=== PATIENT | male | born 1940 | race Caucasian/White ===

== ENCOUNTER 2017-05-13 18:15 | Emergency (ER) | payer OTHER ==
[~2017-05-13] VITALS: Wt 86.2 kg
[2017-05-13] MEDS ORDERED: THORAZINE25 MG PO (18:35)
== END 2017-05-13 19:39 | disposition home or self-care (01) ==
LOC: ED 18:15
DX: R06.6 Hiccough (principal); R10.9 Unspecified abdominal pain; M54.5 Low back pain

== ENCOUNTER 2017-07-16 11:16 | Inpatient (IN) | payer OTHER ==
[~2017-07-16] VITALS: Ht 179 cm; Wt 84.0 kg
[2017-07-16] VITALS (8 sets, daily range): BP systolic 112–138; BP diastolic 48–87
--- NOTE | ~2017-07-16 | CON ---
[place], [place] REPORT OF CONSULTATION NAME: HENRIQUE MARINO UNIT #: [id number] ROOM: 520 DOCTOR: SHAHRIAR JAVIER MD BIRTHDATE: [birth year] DOS: 07/16/2017 HISTORY OF PRESENT ILLNESS: A 76-year-old patient who presented with chief complaint of difficulty swallowing, nausea, vomiting to the Emergency Room. I was called by Dr. Joey Patel couple hours ago. The patient has presumptive diagnosis of a foreign body esophagus to be food that he has ingested yesterday and has not been since able to take his medication and any further drinking or eating. His labs and records reviewed. White blood cell 10, H and H 15 and 45, INR 1.1. Comprehensive metabolic panel, BUN and creatinine 38 and 1.8, glucose 113. Chemistry normal. Chest x-ray, no acute pathology. PAST MEDICAL HISTORY: Hypertension, hyperlipidemia, chronic back pain. PAST SURGICAL HISTORY: Right hip, appendectomy, hernia repair, tonsillectomy. SOCIAL HISTORY: One to two glasses of wine per week. Non-nicotine consumer. FAMILY HISTORY: Noncontributory. ALLERGIES: No known to medication. MEDICATIONS: List reviewed. REVIEW OF SYSTEMS: HEENT: Denies double vision, blurred vision. RESPIRATORY: Denies shortness of breath. CARDIOVASCULAR: Denies chest pain. DIGESTIVE SYSTEM: Dysphagia. PHYSICAL EXAMINATION: VITAL SIGNS: Stable. HEENT: Head normocephalic, nontraumatic. Mouth and buccal mucosa benign. NECK: Supple, no thyromegaly. CHEST: Symmetric anatomy, equal expansion. No wheeze, no rhonchi. HEART: Normal sinus rhythm, no gallop, no murmur. ABDOMEN: Obese, soft. No hepato-organomegaly. Bowel sounds present. EXTREMITIES: No cyanosis, no pedal edema. NEUROLOGIC: Alert, oriented to time, place, person. IMPRESSION: Dysphagia, esophageal foreign body, hypertension, hyperlipidemia, chronic back pain, pain medications. PLAN AND DISCUSSION: EGD, foreign body removal. [place], [place] REPORT OF CONSULTATION NAME: HENRIQUE MARINO UNIT #: [id number] ROOM: 520 DOCTOR: SHAHRIAR JAVIER MD BIRTHDATE: [birth year] SHAHRIAR JAVIER MD CM:CONSTR:REPORT OF CONSULTATION 1710 07/17/17 0213 interface
--- NOTE | ~2017-07-16 | O ---
[place], [place] OPERATIVE NOTE NAME: HENRIQUE MARINO UNIT #: [id number] ROOM: 520 [facility] BIRTHDATE: [birth year] DOS: 07/16/2017 INDICATIONS: The patient has presented with dysphagia. Consultation has been dictated. PROCEDURE: Today's procedure part of investigation is EGD plus biopsy plus esophageal foreign body food impacted, beef meat. PREMEDICATION: Versed and Diprivan. SCOPE: Olympus forward-viewing gastroscope Q10 video. REPORT: After putting the patient in left lateral position and application of lubricant to rectal pouch and digital examination, scope was introduced. Thereafter, under direct visualization, advanced through the length of esophagus, cervical esophagus and thoracic esophagus normal. Distal esophagus was impacted with foreign body food, beef meat. Initially, basket was introduced and attempt was made to remove the foreign body meat with basket. However, this was impractical due to the impaction, then snare was used and eventually multiple pieces orally extracted and eventually debulking the foreign body was removed. Site of the foreign body appears to be injured with pressure necrosis ulcer because he had been sitting on this symptoms for a day, at least day plus. He has pressure necrosis ulcer at distal esophagus, hiatal hernia, moderate size and benign distal esophageal stricture, which is ulcerated. Gastric pouch is benign, duodenal benign. IMPRESSION: 1. Distal esophageal foreign body impaction, beef meat. 2. Pressure necrosis ulcer, distal esophagus. 3. Distal esophageal benign stricture. 4. Moderate size hiatal hernia. PLAN AND DISCUSSION: The ulcer at the distal esophagus appears to be rather deep and I am concerned about the corner of the ulcer. Therefore, I am going to keep this patient on Protonix 40 mg IV b.i.d., sucralfate 2 grams to be sipped by the patient q. 6 hours and 2 hours a.c. meals. Clear liquids from tomorrow morning and clinical reassessment. I would rather this patient not to be on any solid food for the next 3 days, rather on intense medication due to the pressure necrotic ulcer that I see at the end of the esophagus and I am concerned that it may penetrate deeper layers. Therefore, resting the esophagus from receiving solid food with at least organized healing. [place], [place] OPERATIVE NOTE NAME: HENRIQUE MARINO UNIT #: [id number] ROOM: [facility] DOCTOR: YAYA CANELA,SHAHRIAR BIRTHDATE: [birth year] SHAHRIAR JAVIER MD CM:OPRECORD:OPERATIVE NOTE 1714 22 SHAHRIAR JAVIER MD 07/16/172222 interface
--- NOTE | ~2017-07-16 | PROC NOTE ---
[place], [place] PROCEDURE NOTE [id number] UNIT #: [id number] ROOM: 520 DOCTOR: CARL SILVESTRE BIRTHDATE: [birth year] DOS: 07/18/2017 MODIFIED BARIUM SWALLOW. LOCATION: [facility], room 520, bed 1. ORDERING PHYSICIAN: Dr. Henry RADIOLOGIST: Dr. Post. BACKGROUND INFORMATION: The patient, a 76-year-old male was seen for modified barium swallow. This test was ordered to determine most appropriate diet consistency and view the anatomy and physiology of the swallowing mechanism. The patient presented to the Emergency Department 07/16/2017 due to difficulty swallowing which began the prior day while eating pork and sauerkraut. The patient reported feeling that something was stuck in his throat and since that time, he was unable to even swallow liquids. He was seen by Dr. Duffy who performed EGD and removed meat from the distal esophagus, which caused a pressure necrosis ulcer. The patient is currently receiving a full liquid diet. Further medical history includes hypertension and epigastric abdominal pain. For today's assessment, the patient was alert, cooperative and able to follow all commands. Oral peripheral examination revealed natural teeth with many missing. Lingual, labial, and buccal skills were within normal limits in terms of strength, range of motion, and coordination. The patient was able to volitionally cough and swallow. METHODS AND MATERIALS USED FOR THE EXAM: The patient was positioned in the lateral plane and the exam was viewed under fluoroscopy. The patient was presented with a variety of consistencies to assess swallowing skills including applesauce mixed with barium presented in 1/4 and 1/2 teaspoon amounts, barium-coated peaches presented in bite size pieces and thin liquid barium taken by cup, patient swallowed the thin liquid independently. ORAL PHASE: Unremarkable. PHARYNGEAL PHASE: Unremarkable. ESOPHAGEAL PHASE: This phase of the swallow was not formally assessed during this exam. IMPRESSIONS AND RECOMMENDATIONS: Based upon assessment results, this patient displayed oral and pharyngeal swallowing skills that are within normal limits. When medically appropriate for diet upgrade, recommend a regular diet and thin liquid, recommend use of safe swallow strategies such as small bites and sips, chewing thoroughly and eating slowly. No followup dysphagia treatment is warranted at this time. The patient was educated on results and recommendations and verbalized understanding. Thank you very much for this referral. Should you have any questions regarding this patient, please contact the speech pathologist at [phone]. [place], [place] PROCEDURE NOTE NAME: HENRIQUE MARINO Reji UNIT #: [id number] ROOM: [facility] DOCTOR: CARL SILVESTRE BIRTHDATE: [birth year] CARL SILVESTRE WESTLEY REID MD CM:PROCNOTE:PROCEDURE NOTE [id number] CARL SILVESTRE
--- NOTE | ~2017-07-16 | PR ---
[place], [place] PROGRESS NOTE NAME: HENRIQUE MARINO UNIT #: [id number] ROOM: 520 DOCTOR: YAYA CANELASHAHRIAR BIRTHDATE: [birth year] DOS: 07/18/2017 GASTROENDOSCOPIC PROGRESS NOTE REPORT HISTORY OF PRESENT ILLNESS: The patient has presented with esophageal foreign body, which was found to have an impacted foreign body meat at the distal esophagus with complete obstruction and large pressure necrosis ulcer and distal esophageal benign stricture, moderate hiatal hernia. The ulcer at distal esophagus was rather deep and I was concerned that it may penetrate at the lumen and therefore, the patient was kept on aggressive ulcer management with sucralfate and Protonix, was kept first day n.p.o. after that on clear liquid and after that increased to full liquid and he has been tolerating without pain, without shortness of breath. We are going to increase his diet to soft diet tonight and if he tolerates, then he will be a candidate for discharge with continuation of Protonix once a day and to come back and follow as outpatient with us. LABORATORY DATA: His labs and records has been reviewed. PAST MEDICAL HISTORY: Chronic back pain, hypertension, hyperlipidemia. PAST SURGICAL HISTORY: Has been reviewed today. REVIEW OF SYSTEMS: HEENT: Denies double vision, blurred vision. RESPIRATORY: Denies shortness of breath. CARDIOVASCULAR: Denies chest pain. DIGESTIVE SYSTEM: No hematemesis, no dysphagia, history of esophageal stricture and ulceration, pressure necrosis of ulcer in distal esophagus. PHYSICAL EXAMINATION: VITAL SIGNS: Stable. HEENT: Benign. NECK: Supple. LUNGS: Vesicular. No wheeze, no rhonchi. HEART: Normal sinus rhythm, no gallop, no murmur. ABDOMEN: Soft. No hepato-organomegaly. Bowel sounds present. EXTREMITIES: No cyanosis, no pedal edema. NEUROLOGIC: Alert, oriented to time, place, person. IMPRESSION: Distal esophageal pressure necrosis ulcer secondary to esophageal foreign body, status post removal, distal esophageal stricture. PLAN AND DISCUSSION: We are going to increase his diet to soft. If he tolerates, he can be discharged on Protonix tomorrow and follow as outpatient for future dilations. [place], [place] PROGRESS NOTE NAME: HENRIQUE MARINO UNIT #: [id number] ROOM: 520 DOCTOR: YAYA CANELA,SHAHRIAR BIRTHDATE: [birth year] SHAHRIAR JAVIER MD CM:ALEX [id number] SHAHRIAR JAVIER MD 07/19/17 0042 interface
[~2017-07-16 11:16] MED LIST: THORAZINE25 MG PO
[2017-07-16 12:04] LABS: BASO % 0.3 % (0.0-1.0); EOS # 0.1 10*3/uL (0.0-0.4); EOS % 0.9 % (1.0-4.0); HEMATOCRIT 45.1 % (42.0-52.0); HEMOGLOBIN 15.6 g/dl (14.0-18.0); LYMPH # 1.1 10*3/uL (1.3-4.4); LYMPH % 10.1 % (27.0-41.0); MEAN CELL VOLUME 94.4 fl (80.0-94.0); MEAN CORPUSCULAR HGB 32.6 pg (27.0-31.0); MEAN CORPUSCULAR HGB CONC 34.6 g/dl (33.0-37.0); MEAN PLATELET VOLUME 12.1 fl (9.6-12.3); MONO # 0.7 10*3/uL (0.1-1.0); MONO % 6.4 % (3.0-9.0); NEUT # 8.6 10*3/uL (2.3-7.9); NEUT % 81.8 % (47.0-73.0); PLATELET COUNT AUTOMATED 252 10*3/uL (130-400); RED BLOOD COUNT 4.78 10*6/uL (4.50-5.90); RED CELL DISTRI WIDTH 14.6 % (0-14.5); WHITE BLOOD COUNT 10.6 10*3/uL (4.8-10.8)
--- NOTE | 2017-07-16 12:20 | NUR ---
Time: 1220 A 76 year old MALE admitted to 5E under services of GAYLE WELSH DO. Pt. arrived via stretcher from ER. Chief complaint: ABD PAIN, NAUSEA.. NICOLE KAMINSKI
[2017-07-16 12:41] LABS: ACT PARTIAL THROMBO TIME 25.9 SECONDS (20.8-31.5); INTERNATIONAL NORM RATIO 1.1 (2.0-3.5)
[2017-07-16 12:47] LABS: ALBUMIN 4.2 gm/dl (3.1-4.5); CREATININE 1.83 mg/dL (0.70-1.30); TOTAL PROTEIN 7.5 gm/dL (6.4-8.2)
--- NOTE | 2017-07-16 12:48 | NUR ---
DR JAVIER NOTIFIED OF CONSULT
[2017-07-16] MEDS ORDERED: MORPHINE SULFAT20 M2 PO (15:12)
[2017-07-16] MEDS ORDERED: NORCO 7.5-3251 EACH PO (15:13)
[2017-07-16] MEDS ORDERED: ALLOPURINOL100 MG PO (15:13)
[2017-07-16] MEDS ORDERED: ZESTORETIC 20-1 EACH PO (15:14)
[2017-07-16] MEDS ORDERED: LIPITOR20 MG PO (15:15)
[2017-07-16] MEDS ORDERED: FLOMAX0.4 MG PO (15:16)
--- NOTE | 2017-07-16 15:31 | NUR ---
HOME MEDICATIONS VERIFIED WITH AMTT CAMERON
--- NOTE | 2017-07-16 20:31 | NUR ---
PATIENT LAYING IN BED CALL LIGHT IN REACH NO CO AT THIS TIME
--- NOTE | 2017-07-16 22:44 | NUR ---
PATIENT RESTING IN BED EYES CLOSED RESP ERNL SEE SHIFT ASSESSMENT
[2017-07-17] VITALS: BP 135/86
--- NOTE | 2017-07-17 01:28 | NUR ---
PATIENT SLEEPING CALL LIGHT IN REACH RESP ERNL SEE SHIFT ASSESSMENT
[2017-07-17 04:00] VITALS: BP 107/63
--- NOTE | 2017-07-17 05:14 | NUR ---
PATIENT RESTING IN BED CALL LIGHT IN REACH RESP ERNL SEE ASSESSMENT
[2017-07-17 06:36] LABS: BASO % 0.3 % (0.0-1.0); EOS # 0.3 10*3/uL (0.0-0.4); EOS % 4.7 % (1.0-4.0); HEMOGLOBIN 14.6 g/dl (14.0-18.0); LYMPH # 1.1 10*3/uL (1.3-4.4); LYMPH % 16.1 % (27.0-41.0); MEAN CELL VOLUME 95.6 fl (80.0-94.0); MEAN CORPUSCULAR HGB 32.4 pg (27.0-31.0); MEAN PLATELET VOLUME 11.5 fl (9.6-12.3); MONO # 0.6 10*3/uL (0.1-1.0); NEUT # 4.6 10*3/uL (2.3-7.9); NEUT % 69.4 % (47.0-73.0); RED CELL DISTRI WIDTH 14.3 % (0-14.5); WHITE BLOOD COUNT 6.6 10*3/uL (4.8-10.8)
[2017-07-17 06:48] LABS: ALBUMIN 3.5 gm/dl (3.1-4.5); BUN 29 mg/dl (7-24); CHLORIDE 112 mmol/L (98-107); POTASSIUM 3.8 mmol/L (3.5-5.1); SODIUM 145 mmol/L (136-145)
[2017-07-17 06:53] LABS: PLATELET COUNT AUTOMATED 158 10*3/uL (130-400)
[2017-07-17 06:55] LABS: ALKALINE PHOSPHATASE 70 U/L (45-117); CHOLESTEROL 96 mg/dL (<200); CREATININE 1.39 mg/dL (0.70-1.30); HDL CHOLESTEROL 57 mg/dl (40-60); LDL CHOLESTEROL 22 mg/dL (9-159); PHOSPHOROUS 2.1 mg/dL (2.5-4.9); SGOT/AST 18 IU/L (3-35); SGPT/ALT 21 U/L (12-78); THYROID STIM HORMONE (HS) 0.301 uIU/ml (0.358-4.75); TOTAL PROTEIN 6.8 gm/dL (6.4-8.2); TRIGLYCERIDES 86 mg/dl (<150); VLDL CHOLESTEROL 17 mg/dL (6-40)
--- NOTE | 2017-07-17 07:58 | NUR ---
PT RESTING IN BED, EYES CLOSED. NO DISTRESS NOTED. WILL MONITOR
[2017-07-17 08:00] VITALS: BP 124/62
--- NOTE | 2017-07-17 08:00 | NUR ---
VS STABLE, SPO2 94% ON ROOM AIR, PULSE 60 REGULAR ALERT ORENTATIEDX3 LUNGS CLEAR THROUGHOUT, HEART SOUNDS NORMAL, SKIN TURGOR GOOD, SKIN PINK WARM & DRY, ABDOMEN SOFT NON-DISTENED, PULSES GOOD THROUGHOUT, BOWEL SOUNDSX4, ANATOLY, EQUAL HULL INSPECTOR, NO COMPLAINTS AT THIS TIME WILL CONTINUE TO MONITOR. [facility]ALL [facility]
--- NOTE | 2017-07-17 08:30 | NUR ---
Equipment Manager in to talk to patient. Patient states lives at home alone. There are no steps in the home. Physician: Dr. Fer Daniels Pharmacy: [facility] services: none Patient's level of ADLs: INDEPENDENT Patient has working utilities: yes DME: none Follow-up physician's appointment after d/c: will be made by hospitalist nurse director upon discharge Does patient want to access PORTAL?: no Discharge plan discussed with patient. He is independent in his ADLs and ambulation. Denies any home needs. When medically stable he will be discharged to home. FRANK FARRAR
[2017-07-17 08:44] LABS: VITAMIN D, 25-HYDROXY 15.9 ng/mL (30-100)
--- NOTE | 2017-07-17 11:30 | NUR ---
DIET UP GRADED TO CLEAR LIQUID DIET. [facility]MI [facility]ALL [facility]
[2017-07-17 12:00] VITALS: BP 126/76
--- NOTE | 2017-07-17 12:49 | NUR ---
PT TOLORATED CLEAR LIQUID DIET ATE 100% OF MEAL. [facility]
[2017-07-17 16:00] VITALS: BP 137/86
--- NOTE | 2017-07-17 16:00 | NUR ---
IV started LEFT ARM with # 24 angiocath after 2 attempts. The IV site was prepped with Chloraprep. Heparin lock attached. Sterile dressing applied. Patient tolerated precedure well. Procedure performed according to [facility] policy & procedure. NICOLE KAMINSKI
[2017-07-17 20:00] VITALS: BP 147/71
--- NOTE | 2017-07-17 20:20 | NUR ---
PT RESTING IN BED WATCHING TV. NO S AND S OF DISTRESS NOTED AT THIS TIME. RESPS EASY AND REGULAR. CALL LIGHT IN REACH. LAB RESULTS AND ORDERS REVIEWED.
--- NOTE | 2017-07-17 23:00 | NUR ---
ASSUMED CARE FOR THIS PT AT THIS TIME. RESTING QUIETLY IN BED AT THIS TIME. NO C/O VOICED. DENIES DYSPHAGIA. PT TEACHING GIVEN RE SWALLOWING TO PREVENT CHOKING. PT RECEPTIVE TO LEARNING. CALL LIGHT IN REACH.
[2017-07-18] VITALS: BP 145/77
[2017-07-18 07:03] LABS: BASO % 0.5 % (0.0-1.0); EOS # 0.4 10*3/uL (0.0-0.4); EOS % 6.8 % (1.0-4.0); HEMATOCRIT 41.2 % (42.0-52.0); HEMOGLOBIN 14.1 g/dl (14.0-18.0); LYMPH # 1.5 10*3/uL (1.3-4.4); LYMPH % 25.2 % (27.0-41.0); MEAN CELL VOLUME 94.9 fl (80.0-94.0); MEAN CORPUSCULAR HGB 32.5 pg (27.0-31.0); MEAN CORPUSCULAR HGB CONC 34.2 g/dl (33.0-37.0); MEAN PLATELET VOLUME 11.2 fl (9.6-12.3); MONO # 0.6 10*3/uL (0.1-1.0); NEUT # 3.4 10*3/uL (2.3-7.9); NEUT % 57.2 % (47.0-73.0); PLATELET COUNT AUTOMATED 152 10*3/uL (130-400); RED BLOOD COUNT 4.34 10*6/uL (4.50-5.90); RED CELL DISTRI WIDTH 13.9 % (0-14.5)
[2017-07-18 07:33] LABS: CHLORIDE 108 mmol/L (98-107); POTASSIUM 3.5 mmol/L (3.5-5.1); SODIUM 140 mmol/L (136-145)
[2017-07-18 07:36] LABS: BUN 22 mg/dl (7-24); FREE T4 1.24 ng/dl (0.76-1.46)
[2017-07-18 08:00] VITALS: BP 134/72
--- NOTE | 2017-07-18 08:00 | NUR ---
VS STABLE, ALERT ORENTATIEDX3, SPO 95% ON ROOM AIR, PULSE 60 REGULAR, LUNGS CLEAR THROUGHOUT, HEART SOUNDS NORMAL, BOWEL SOUNDSX4 ABDOMEN SOFT NON-DISTENDED, ANATOLY, SKIN TURGOR GOOD, SKIN PINK WARM &DRY, PULSES GOOD THROUGHOUT NO COMPLAINTS OF PAIN AT THIS TIME WILL CONTINUE TO MONITOR. [facility]
--- NOTE | 2017-07-18 08:22 | NUR ---
SPOKE TO DR JAVIER REGARDING DIET CHANGE , ORDER RECIEVED TO ADVANCE TO FULL LIQUID DIET TODAY.
--- NOTE | 2017-07-18 08:30 | NUR ---
PATIENT UP GRADED TO A FULL LIQUID DIET NO[facility]MI MENDENHALL [facility]
--- NOTE | 2017-07-18 08:30 | NUR ---
NO COMPLAINTS OF DIFFICULTY SWALLOWING, NO STRIDER HEARD, [facility]MI [facility]END[facility]ALL [facility]
--- NOTE | 2017-07-18 08:30 | NUR ---
.Dispatch Machine Runner in to see patient. No new needs or request at this time. When medically stable he will be discharged to home.
--- NOTE | 2017-07-18 10:25 | NUR ---
PATIENT OF THE FLOOR FOR A BARIUM SWALLOW. [facility]
--- NOTE | 2017-07-18 10:40 | NUR ---
PATIENT RETURN TO FLOOR FROM BARIUM SWALLOW. [facility]
--- NOTE | 2017-07-18 10:44 | NUR ---
SPEECH PATHOLOGY Instrumental swallowing evaluation completed as per orders. Patient was alert and cooperative. He was challenged with puree, solid and thin liquid. Oral and pharyngeal swallowing skills were WNL with no penetration, aspiration and no residue. When medically appropriate for diet upgrade, recommend a regular diet and thin liquid. Patient was educated on safe swallow strategies such as small bites/sips, chewing thoroughly and eating slowly. No follow up dysphagia treatment is warranted. Patient verbalized understanding and agreement of information provided. Patient's nurse will be informed as well. Dictated report to follow. Thank you for this referral. CARL SILVESTRE [facility]IGH LIFT OPERATOR
[2017-07-18 12:00] VITALS: BP 126/78
[2017-07-18] MEDS ORDERED: Carafate1 GM/10 ML PO (15:52)
[2017-07-18] MEDS ORDERED: PROTONIX40 MG PO (15:52)
[2017-07-18] MEDS ORDERED: VITAMIN D-32000 UNI1 PO (15:52)
[2017-07-18 16:00] VITALS: BP 122/81
--- NOTE | 2017-07-18 16:02 | NUR ---
PER DR. JAVIER, PATIENT UPGRADED TO SOFT DIET AND CAN BE DISCHARGED 07-19-[address] MANSFIELD NOTIFIED. SEE NEW ORDERS.
[2017-07-18 20:00] VITALS: BP 143/80
--- NOTE | 2017-07-18 22:00 | NUR ---
PT RESTING IN BED WATCHING TV. NO ACUTE DISTRESS NOTED AT THIS TIME. RESPS EASY AND UNLABORED. CALL LIGHT REINFORCED. DENIES PAIN. WILL CONTINUE TO MONITOR.
[2017-07-19] VITALS: BP 124/80
--- NOTE | 2017-07-19 02:00 | NUR ---
PT RESTING IN BED WITH EYES CLOSED. NO S AND S OF ACUTE DISTRESS NOTED AT THIS TIME. RESPS EASY AND REGULAR. CALL LIGHT IN REACH.
[2017-07-19 08:00] VITALS: BP 125/89
--- NOTE | 2017-07-19 08:30 | NUR ---
Jet Man in to see patient. No new needs or request at this time. When medically stable he will be discharged to home.
--- NOTE | 2017-07-19 12:43 | NUR ---
Discharge instructions reviewed with patient/family. Patient receptive and verbalizes understanding. Follow-up care arranged. Written instructions given to patient/family. KIMI HAMPTON
== END 2017-07-19 12:43 | disposition home or self-care (01) | DRG 393 ==
LOC: ED 11:16 → EDHOLD 11:53 → 5E 11:53
PROVIDERS: Emergency Medicine; Internal Medicine Nephrology; ADMIT Internal Medicine
PROC: 0DC38ZZ Extirpation of Matter from Lower Esophagus, Via Natural or Artificial Opening Endoscopic (ICD-10-PCS; principal; 2017-07-16)
PROC: BD11YZZ Fluoroscopy of Esophagus using Other Contrast (ICD-10-PCS; 2017-07-18)
DX: T18.128A Food in esophagus causing other injury, initial encounter (principal); N17.0 Acute kidney failure with tubular necrosis; K22.10 Ulcer of esophagus without bleeding; D72.810 Lymphocytopenia; D72.818 Other decreased white blood cell count; E87.8 Other disorders of electrolyte and fluid balance, not elsewhere classified; R73.9 Hyperglycemia, unspecified; E66.3 Overweight; E78.5 Hyperlipidemia, unspecified; Z68.26 Body mass index [BMI] 26.0-26.9, adult; I10 Essential (primary) hypertension; G89.29 Other chronic pain; Z96.641 Presence of right artificial hip joint; M54.9 Dorsalgia, unspecified; E55.9 Vitamin D deficiency, unspecified; K44.9 Diaphragmatic hernia without obstruction or gangrene; K22.2 Esophageal obstruction; X58.XXXA Exposure to other specified factors, initial encounter; Y93.89 Activity, other specified; Y92.89 Other specified places as the place of occurrence of the external cause; Y99.8 Other external cause status; Z90.49 Acquired absence of other specified parts of digestive tract; Z72.89 Other problems related to lifestyle; Z80.3 Family history of malignant neoplasm of breast; Z82.49 Family history of ischemic heart disease and other diseases of the circulatory system; Z79.899 Other long term (current) drug therapy